=== PATIENT | female | born 1975 | race American Indian/Alaskan Native ===

== ENCOUNTER 2017-04-20 10:15 | Emergency (ER) | payer OTHER ==
[2017-04-20 10:33] VITALS: BP 108/61
[2017-04-20] MEDS ORDERED: XYLOCAINE 1% 20 mL INFILTRATI ONE (10:34)
[2017-04-20] MEDS ORDERED: KEFLEX PO ONE (10:34)
[2017-04-20] MEDS ORDERED: MOTRIN PO ONE (10:34)
[2017-04-20] MEDS ORDERED: BACTRIM DS PO ONE (10:34)
--- NOTE | 2017-04-20 10:34 | Emergency Department Report ---
Chief Complaint: Skin/Abscess/Foreign Body Stated Complaint: INFECTED CYST LEFT UNDERARM Time Seen by Provider: 04/20/17 10:31 - HPI History of Present Illness: PT c/o skin infection under her L arm. - ROS Review of Systems: - f/c -n/ v - Exam Physical Exam: pt with abscess and cellulitis to L axilla MSE screening note: Focused history and physical exam performed. Due to findings the following was ordered: meds ED Disposition for MSE Condition: Stable
[2017-04-20] MEDS ORDERED: BOOSTRIX IM ONE (10:35)
--- NOTE | 2017-04-20 12:20 | Emergency Department Report ---
- General Chief complaint: Skin/Abscess/Foreign Body Stated complaint: INFECTED CYST LEFT UNDERARM Time Seen by Provider: 04/20/17 10:31 Source: patient Mode of arrival: Ambulatory Limitations: No Limitations - History of Present Illness Initial comments: Patient here report abscess to left armpit 4 days. He reports pain at 7 out of 10. Denies any fever or chills. She states that she's had similar incident but it was smaller and she was able to take care of it at home. Over-the- counter medication taken for pain and she says she's been clean and it with peroxide but is getting bigger. Denies any nausea or vomiting. Pain localized to abscess site. Denies any drainage from site. MD complaint: abscess/boil Onset/Timin -: days(s) Tetanus Up to Date: no Location: LUE (lt axilla) Severity: severe Severity scale (0 -10): 7 Quality: other (throbbing) Consistency: intermittent Improves with: immobilization, rest Worsens with: palpation, movement Context: other (recurrent abscess) Associated symptoms: denies other symptoms Treatments Prior to Arrival: OTC topical medication - Related Data Previous Rx's Medication Instructions Recorded Last Taken Type Ibuprofen [Motrin] 600 mg PO Q8H PRN #15 tablet 04/20/17 Unknown Rx Sulfamethoxazole/Trimethoprim 1 each PO BID #20 tablet 04/20/17 Unknown Rx [Bactrim DS TAB] Allergies Allergy/AdvReac Type Severity Reaction Status Date / Time banana Allergy Itching Verified 04/20/17 10:28 Penicillins Allergy Rash Verified 04/20/17 11:50 morphine AdvReac Vomiting Verified 04/20/17 11:50 Abscess Boil HPI - HPI Chief Complaint: Skin/Abscess/Foreign Body Stated Complaint: INFECTED CYST LEFT UNDERARM Time Seen by Provider: 04/20/17 10:31 Home Medications: Previous Rx's Medication Instructions Recorded Last Taken Type Ibuprofen [Motrin] 600 mg PO Q8H PRN #15 tablet 04/20/17 Unknown Rx Sulfamethoxazole/Trimethoprim 1 each PO BID #20 tablet 04/20/17 Unknown Rx [Bactrim DS TAB] Allergies/Adverse Reactions: Allergies Allergy/AdvReac Type Severity Reaction Status Date / Time banana Allergy Itching Verified 04/20/17 10:28 Penicillins Allergy Rash Verified 04/20/17 11:50 morphine AdvReac Vomiting Verified 04/20/17 11:50 ED Review of Systems ROS: Stated complaint: INFECTED CYST LEFT UNDERARM Other details as noted in HPI Comment: All other systems reviewed and negative Constitutional: denies: chills, fever Respiratory: no symptoms reported Cardiovascular: denies: chest pain, palpitations, edema, syncope Gastrointestinal: denies: abdominal pain, nausea, vomiting, diarrhea, constipation Musculoskeletal: denies: back pain, joint swelling, arthralgia, myalgia Skin: denies: rash Neurological: denies: headache, weakness, numbness, paresthesias, confusion, abnormal gait, vertigo ED Past Medical Hx - Past Medical History Previous Medical History?: Yes Additional medical history: Vaginal delivery x 3 - Surgical History Past Surgical History?: Yes Additional Surgical History: x 1 - Family History Family history: hypertension - Social History Smoking Status: Current Some Day Smoker Substance Use Type: Alcohol, Marijuana, Non Opiate Pain Other Social History: single - Medications Home Medications: Home Medications Medication Instructions Recorded Confirmed Last Taken Type Ibuprofen [Motrin] 600 mg PO Q8H PRN #15 tablet 04/20/17 Unknown Rx Sulfamethoxazole/Trimethoprim 1 each PO BID #20 tablet 04/20/17 Unknown Rx [Bactrim DS TAB] ED Physical Exam - General Limitations: No Limitations General appearance: alert, in no apparent distress - Head Head exam: Present: atraumatic, normocephalic, normal inspection - Eye Eye exam: Present: normal appearance, PERRL, EOMI Pupils: Present: normal accommodation - ENT ENT exam: Present: normal exam, normal orophraynx, mucous membranes moist, TM's normal bilaterally, normal external ear exam - Neck Neck exam: Present: normal inspection, full ROM. Absent: tenderness, meningismus, lymphadenopathy - Respiratory Respiratory exam: Present: normal lung sounds bilaterally. Absent: respiratory distress, chest wall tenderness - Cardiovascular Cardiovascular Exam: Present: regular rate, normal rhythm, normal heart sounds - GI/Abdominal GI/Abdominal exam: Present: soft, normal bowel sounds. Absent: distended, tenderness, guarding, rebound, rigid - Extremities Exam Extremities exam: Present: normal inspection, full ROM, tenderness (lt axilla at abscess), normal capillary refill. Absent: pedal edema, joint swelling, calf tenderness - Back Exam Back exam: Present: normal inspection, full ROM. Absent: tenderness, CVA tenderness (R), CVA tenderness (L), muscle spasm, paraspinal tenderness, vertebral tenderness, rash noted - Neurological Exam Neurological exam: Present: alert, oriented X3, normal gait, reflexes normal. Absent: motor sensory deficit - Psychiatric Psychiatric exam: Present: normal affect, normal mood - Skin Skin exam: Present: warm, dry, intact, erythema, other (abscess) - Expanded Skin Exam Expanded Type of lesion: Present: abscess Distribution of rash: LUE (lt axilla) Description of rash: Present: size (2x2), tenderness, erythematous, swelling, fluctuant, indurated. Absent: discharge ED Course Vital Signs 04/20/17 04/20/17 10:28 11:51 Temperature 98.3 F Pulse Rate 76 Respiratory 18 18 Rate Blood Pressure 108/61 O2 Sat by Pulse 100 Oximetry - Reevaluation(s) Reevaluation #1: 04/20/17 14:08 Patient received Bactrim DS, Keflex 500 mg, ibuprofen 600 mg by mouth, and tetanus vaccine in the emergency room. ED Medical Decision Making - Medical Decision Making ED course: Pt here with abscess to left axilla. Incision and drainage procedure done.See procedure note for details. Diagnosis of cellulitis, abscess encounter for incision and drainage. Patient given Keflex 500 mg, Bactrim DS 1 tablet, tetanus vaccine 0.5 mls, Motrin 600 mg in emergency room prior to procedure. Patient had similar incident in the past but she says she never had to go to have area drained because it was smaller and she took care of it herself. She is afebrile and pain is controlled. I discussed the patient diagnosis and treatment plan and she voiced understanding. Pt discharged home with prescription for Motrin and Bactrim DS and to return to the emergency room in 4 days to have packing removed. Critical care attestation.: If time is entered above; I have spent that time in minutes in the direct care of this critically ill patient, excluding procedure time. ED Disposition Clinical Impression: Abscess of axilla, left, Cellulitis of axilla, left, Encounter for incision and drainage procedure Disposition: TO HOME OR SELFCARE Is pt being admited?: No Does the pt Need Aspirin: No Condition: Stable Instructions: Cellulitis (ED), Abscess Incision and Drainage (ED) Additional Instructions: Increasing her fluid intake Take antibiotic as prescribed Please return to the emergency room in 4 days to have packing removed do not really move packing from affected area. Keep affected area clean and dry Follow-up with primary care physician Prescriptions: Ibuprofen [Motrin] 600 mg PO Q8H PRN #15 tablet PRN Reason: Pain Sulfamethoxazole/Trimethoprim [Bactrim DS TAB] 1 each PO BID #20 tablet Referrals: [facility] [Outside] - 2-3 Days return to, ER [Other] - 04/24/17 Forms: Work/School Release Form(ED)
== END 2017-04-20 14:22 | disposition home or self-care (01) ==
LOC: ED 10:15
DX: L02.412 Cutaneous abscess of left axilla (principal); L03.112 Cellulitis of left axilla; F12.90 Cannabis use, unspecified, uncomplicated; Z72.0 Tobacco use; Z88.0 Allergy status to penicillin; Z88.5 Allergy status to narcotic agent; Z91.018 Allergy to other foods
CPT/HCPCS: 90471; 90715

== ENCOUNTER 2017-04-24 18:39 | Emergency (ER) | payer OTHER ==
--- NOTE | 2017-04-24 19:07 | Emergency Department Report ---
ED Recheck HPI - General Chief Complaint: Laceration/Recheck/Suture Stated Complaint: BANDAGE REMOVAL Time Seen by Provider: 04/24/17 19:07 Source: patient, family Mode of arrival: Ambulatory Limitations: No Limitations - History of Present Illness Initial Comments: Patient here with abscess to left axilla that was drained on 2016. She is here for recheck and for packing removal. Denies any fever or chills. She said her pain is 2 out of 10 with movement but she says she still feeling better she said that she is still on antibiotic which is Bactrim DS. Patient also requests then medication for yeast medication says she develop yeast infection from taking antibiotic. She says she's been using MetroGel but she does better with pills. Denies any fever or chills. Denies any numbness or tingling to extremities. She reports that there is minimal drainage from site. Complaint: wound re-check Onset/Timin -: days(s) Initial Visit For: abscess Returns Today for: wound recheck Symptoms Since Prior Visit: no new symptoms, improved Context: planned re-check Associated Symptoms: none Treatments Prior to Arrival: dressings, Given Antibiotics on, Given Pain Meds on , other (incision and drainage) - Related Data Previous Rx's Medication Instructions Recorded Last Taken Type Ibuprofen [Motrin] 600 mg PO Q8H PRN #15 tablet 04/20/17 Unknown Rx Sulfamethoxazole/Trimethoprim 1 each PO BID #20 tablet 04/20/17 Unknown Rx [Bactrim DS TAB] Fluconazole [Diflucan TAB] 150 mg PO ONCE #2 tablet 04/24/17 Unknown Rx Allergies Allergy/AdvReac Type Severity Reaction Status Date / Time banana Allergy Itching Verified 04/20/17 10:28 Penicillins Allergy Rash Verified 04/20/17 11:50 morphine AdvReac Vomiting Verified 04/20/17 11:50 ED Review of Systems ROS: Stated complaint: BANDAGE REMOVAL Other details as noted in HPI Comment: All other systems reviewed and negative Constitutional: denies: chills, malaise Respiratory: no symptoms reported Cardiovascular: denies: chest pain, palpitations, edema, syncope Gastrointestinal: denies: abdominal pain, nausea, vomiting Genitourinary: discharge (patient reports that she has a yeast infection with white clumpy discharge and vaginal itching). denies: urgency, dysuria Musculoskeletal: denies: back pain Skin: other (status post incision and drainage to left axilla). denies: rash Neurological: denies: headache Other: Lives with family ED Past Medical Hx - Past Medical History Previous Medical History?: Yes Additional medical history: Vaginal delivery x 3, Left arm boil - Surgical History Past Surgical History?: Yes Additional Surgical History: x 1 - Family History Family history: hypertension - Social History Smoking Status: Current Some Day Smoker Substance Use Type: Alcohol, Prescribed Other Social History: lives with family - Medications Home Medications: Home Medications Medication Instructions Recorded Confirmed Last Taken Type Ibuprofen [Motrin] 600 mg PO Q8H PRN #15 tablet 04/20/17 Unknown Rx Sulfamethoxazole/Trimethoprim 1 each PO BID #20 tablet 04/20/17 Unknown Rx [Bactrim DS TAB] Fluconazole [Diflucan TAB] 150 mg PO ONCE #2 tablet 04/24/17 Unknown Rx ED Physical Exam - General Limitations: No Limitations General appearance: alert, in no apparent distress - Head Head exam: Present: atraumatic, normocephalic, normal inspection - Eye Eye exam: Present: normal appearance, PERRL, EOMI Pupils: Present: normal accommodation - ENT ENT exam: Present: normal exam, normal orophraynx, mucous membranes moist - Neck Neck exam: Present: normal inspection, full ROM. Absent: tenderness, meningismus - Respiratory Respiratory exam: Present: normal lung sounds bilaterally. Absent: respiratory distress, chest wall tenderness - Cardiovascular Cardiovascular Exam: Present: regular rate, normal rhythm, normal heart sounds - GI/Abdominal GI/Abdominal exam: Present: soft, normal bowel sounds. Absent: distended, tenderness, guarding, rebound, rigid - Extremities Exam Extremities exam: Present: normal inspection, full ROM, normal capillary refill. Absent: tenderness, pedal edema, joint swelling, calf tenderness - Back Exam Back exam: Present: normal inspection, full ROM. Absent: tenderness, CVA tenderness (R), CVA tenderness (L), muscle spasm, paraspinal tenderness, vertebral tenderness, rash noted - Neurological Exam Neurological exam: Present: alert, oriented X3, normal gait, reflexes normal. Absent: motor sensory deficit - Psychiatric Psychiatric exam: Present: normal affect, normal mood - Skin Skin exam: Present: warm, dry, intact, normal color - Expanded Skin Exam Expanded Type of lesion: Present: abscess Distribution of rash: LUE (left axilla) Description of rash: Present: tenderness (mild tenderness), discharge (scant serous drainage), indurated (patient would packing. Still with some induration to the left axilla. No drainage noted. Wound appeared clean). Absent: erythematous, petechial, purpuic, crusting, fluctuant ED Course Vital Signs 04/24/17 18:53 Temperature 98.7 F Pulse Rate 73 Respiratory 16 Rate Blood Pressure 115/55 O2 Sat by Pulse 98 Oximetry - Reevaluation(s) Reevaluation #1: 04/24/17 19:31 Packing removed from left axilla. Area flushed with normal saline. Surrounding area cleansed with iodine and normal saline. Dry sterile dressing applied to site. Patient instructed to apply warm compresses to facilitate drainage. ED Recheck MDM - Medical Decision Making ED course: Pt had incision and drainage and packing to abscess left axilla 5 days ago. She remains on sulfa Bactrim DS which she says she's taken as instructed. She has minimal pain only with movement. Packing was removed and wound flushed with normal saline. Surrounding area cleansed with iodine and sterile dry dressing placed inside. She tolerated procedure well. I instructed the patient that she needs to continue to take her antibiotic until completed. Her wound is getting better but she still has some indurated area which I told her she needs to place warm compresses to help to soften the area up and facilitate drainage. She and reports that she has a yeast infection from taking an antibiotic which she usually gets and that she has white clumpy vaginal discharge without any odor with vaginal itching. She says she's been taking MetroGel but it's not helping and that the pills worked better for her. Patient is stable and discharged home to continue to take antibiotic and given prescription for Diflucan on. He struck today that she needs to follow-up with her primary care in 3-5 days and if she does not have a primary care she needs to follow-up at [facility]. Critical care attestation.: If time is entered above; I have spent that time in minutes in the direct care of this critically ill patient, excluding procedure time. ED Disposition Clinical Impression: Abscess packing removal, Yeast infection of the vagina Disposition: DC-01 TO HOME OR SELFCARE Is pt being admited?: No Does the pt Need Aspirin: No Condition: Stable Instructions: Vulvovaginal Candidiasis (ED), Abscess (ED) Additional Instructions: Please keep affected area clean and dry Increase her fluid intake She didn't take antibiotic Please follow up with the primary care physician and if you do not have a primary care physician follow-up at [facility] in 3-5 days Take Diflucan for yeast infection Prescriptions: Fluconazole [Diflucan TAB] 150 mg PO ONCE #2 tablet Referrals: PRIMARY CARE, [Primary Care Provider] - 3-5 Days [facility] [Outside] - 3-5 Days Forms: Work/School Release Form(ED)
[2017-04-24 22:54] VITALS: BP 112/75
== END 2017-04-24 19:45 | disposition home or self-care (01) ==
LOC: ED 18:39
DX: B37.3 Candidiasis of vulva and vagina (principal); F17.210 Nicotine dependence, cigarettes, uncomplicated; Z88.6 Allergy status to analgesic agent; Z88.0 Allergy status to penicillin; Z91.018 Allergy to other foods
CPT/HCPCS: 99282

== ENCOUNTER 2017-07-07 16:30 | Emergency (ER) | payer SELFPAY ==
[2017-07-07 16:44] VITALS: BP 140/71
[2017-07-07 18:18] LABS: Bilirubin,Urine NEG (Negative); Blood,Urine NEG (Negative); Ketones,Urine NEG (Negative); Leukocyte Esterase,Urine NEG (Negative); Mucus,Urine FEW /HPF; Nitrite,Urine NEG (Negative); Protein,Urine <15 mg/dL mg/dL (Negative); Urobilinogen,Urine < 2.0 mg/dL (<2.0)
[2017-07-07 18:22] LABS: RBC,Urine < 1.0 /HPF (0.0-6.0)
== END 2017-07-07 22:00 | disposition left against medical advice (07) ==
LOC: ED 16:30
DX: N89.8 Other specified noninflammatory disorders of vagina (principal); Z53.21 Procedure and treatment not carried out due to patient leaving prior to being seen by health care provider
CPT/HCPCS: 81001; 81025

== ENCOUNTER 2018-01-13 | Emergency (ER) | payer SELFPAY ==
[2018-01-13 00:25] VITALS: BP 101/76
[2018-01-13] MEDS ORDERED: ULTRAM ONE (03:33)
[2018-01-13] MEDS ORDERED: ULTRAM PO ONE (03:35)
--- NOTE | 2018-01-13 03:52 | Emergency Department Report ---
ED ENT HPI - General Chief complaint: Dental/Oral Stated complaint: TOOTHACHE Time Seen by Provider: 01/13/18 03:47 Source: patient Mode of arrival: Ambulatory Limitations: No Limitations - History of Present Illness Initial comments: 42-year-old -[place] female comes in complaining of left upper tooth pain for the last 3 months. Patient reports that she's tried Tylenol and ibuprofen without much relief. Patient denies any swelling no fever no chills no swollen mouth no swollen jaw. She denies any drooling no trismus no difficulty eating or drinking. She has no past medical history currently takes no medications on a daily basis and she has multiple allergies to morphine penicillin and bananas. MD complaint: tooth pain -: month(s) (3) - Related Data Previous Rx's Medication Instructions Recorded Last Taken Type Ibuprofen [Motrin] 600 mg PO Q8H PRN #15 tablet 04/20/17 Unknown Rx Sulfamethoxazole/Trimethoprim 1 each PO BID #20 tablet 04/20/17 Unknown Rx [Bactrim DS TAB] Fluconazole [Diflucan TAB] 150 mg PO ONCE #2 tablet 04/24/17 Unknown Rx Clindamycin [Clindamycin CAP] 300 mg PO Q8H #30 cap 01/13/18 Unknown Rx Ibuprofen [Motrin 800 MG tab] 800 mg PO Q8HR PRN #30 tablet 01/13/18 Unknown Rx Allergies Allergy/AdvReac Type Severity Reaction Status Date / Time banana Allergy Itching Verified 04/20/17 10:28 Penicillins Allergy Rash Verified 04/20/17 11:50 morphine AdvReac Vomiting Verified 04/20/17 11:50 ED Dental HPI - General Chief complaint: Dental/Oral Stated complaint: TOOTHACHE Time Seen by Provider: 01/13/18 03:47 Source: patient Mode of arrival: Ambulatory Limitations: No Limitations - Related Data Previous Rx's Medication Instructions Recorded Last Taken Type Ibuprofen [Motrin] 600 mg PO Q8H PRN #15 tablet 04/20/17 Unknown Rx Sulfamethoxazole/Trimethoprim 1 each PO BID #20 tablet 04/20/17 Unknown Rx [Bactrim DS TAB] Fluconazole [Diflucan TAB] 150 mg PO ONCE #2 tablet 04/24/17 Unknown Rx Clindamycin [Clindamycin CAP] 300 mg PO Q8H #30 cap 01/13/18 Unknown Rx Ibuprofen [Motrin 800 MG tab] 800 mg PO Q8HR PRN #30 tablet 01/13/18 Unknown Rx Allergies Allergy/AdvReac Type Severity Reaction Status Date / Time banana Allergy Itching Verified 04/20/17 10:28 Penicillins Allergy Rash Verified 04/20/17 11:50 morphine AdvReac Vomiting Verified 04/20/17 11:50 ED Review of Systems ROS: Stated complaint: TOOTHACHE Other details as noted in HPI Constitutional: denies: chills, fever Eyes: denies: eye pain, eye discharge, vision change ENT: dental pain Respiratory: denies: cough, shortness of breath, wheezing Cardiovascular: denies: chest pain, palpitations Endocrine: no symptoms reported Gastrointestinal: denies: abdominal pain, nausea, diarrhea Genitourinary: denies: urgency, dysuria, discharge Musculoskeletal: denies: back pain, joint swelling, arthralgia Skin: denies: rash, lesions Neurological: denies: headache, weakness, paresthesias Psychiatric: denies: anxiety, depression Hematological/Lymphatic: denies: easy bleeding, easy bruising ED Past Medical Hx - Past Medical History Previous Medical History?: No Additional medical history: Vaginal delivery x 3, Left arm boil - Surgical History Past Surgical History?: Yes Additional Surgical History: x 1 - Social History Smoking Status: Never Smoker Substance Use Type: None - Medications Home Medications: Home Medications Medication Instructions Recorded Confirmed Last Taken Type Ibuprofen [Motrin] 600 mg PO Q8H PRN #15 tablet 04/20/17 Unknown Rx Sulfamethoxazole/Trimethoprim 1 each PO BID #20 tablet 04/20/17 Unknown Rx [Bactrim DS TAB] Fluconazole [Diflucan TAB] 150 mg PO ONCE #2 tablet 04/24/17 Unknown Rx Clindamycin [Clindamycin CAP] 300 mg PO Q8H #30 cap 01/13/18 Unknown Rx Ibuprofen [Motrin 800 MG tab] 800 mg PO Q8HR PRN #30 tablet 01/13/18 Unknown Rx ED Physical Exam - General Limitations: No Limitations General appearance: alert, in no apparent distress - Head Head exam: Present: atraumatic, normocephalic - Expanded ENT Exam Expanded Teeth exam: Present: dental caries, fractured tooth # ([phone]). Absent: gingival enlargement - Neck Neck exam: Present: normal inspection - Neurological Exam Neurological exam: Present: alert, oriented X3 - Psychiatric Psychiatric exam: Present: normal affect, normal mood - Skin Skin exam: Present: warm, dry, intact, normal color. Absent: rash ED Course Vital Signs 01/13/18 00:23 Temperature 98.6 F Pulse Rate 73 Respiratory 17 Rate Blood Pressure 101/76 ED Medical Decision Making - Medical Decision Making Patient is given tramadol for pain. Discussed the patient she needs to follow- up with the dentist. I will place patient on clindamycin 300 mg by mouth 3 times a day for 10 days. Ibuprofen for pain and referral to dentistry. She verbalized understanding Critical care attestation.: If time is entered above; I have spent that time in minutes in the direct care of this critically ill patient, excluding procedure time. ED Disposition Clinical Impression: Dental caries, Fractured dental anglican with loss of material Disposition: - TO HOME OR SELFCARE Is pt being admited?: No Does the pt Need Aspirin: No Condition: Stable Instructions: Dental Caries (ED), Toothache (ED) Additional Instructions: Please complete antibiotics as prescribed. Please is take ibuprofen for pain management. Please follow up with a dentist. Prescriptions: Clindamycin [Clindamycin CAP] 300 mg PO Q8H #30 cap Ibuprofen [Motrin 800 MG tab] 800 mg PO Q8HR PRN #30 tablet PRN Reason: Pain Referrals: PRIMARY CARE, [Primary Care Provider] - 3-5 Days [facility] [Outside] - 3-5 Days [facility] [Outside] - 3-5 Days Forms: Work/School Release Form(ED)
== END 2018-01-13 04:03 | disposition home or self-care (01) ==
LOC: ED
DX: K02.9 Dental caries, unspecified (principal); K08.531 Fractured dental restorative material with loss of material; Z88.6 Allergy status to analgesic agent; Z88.0 Allergy status to penicillin; Z91.018 Allergy to other foods
CPT/HCPCS: 99282

== ENCOUNTER 2019-11-22 18:45 | Emergency (ER) | payer SELFPAY ==
[2019-11-22 21:28] VITALS: BP 146/81
== END 2019-11-22 21:50 | disposition left against medical advice (07) ==
LOC: ED 18:45
DX: M25.552 Pain in left hip (principal); Z53.21 Procedure and treatment not carried out due to patient leaving prior to being seen by health care provider